=== PATIENT | male | born 1935 | race Caucasian/White ===

== ENCOUNTER 2021-01-09 19:11 | Emergency (ER) | payer OTHER, MEDICAID ==
[~2021-01-09] VITALS: Ht 172.7 cm; Wt 95.3 kg
--- NOTE | 2021-01-09 19:11 | NUR ---
19.00 : Stat EKG in triage.
[2021-01-09 19:15] VITALS: BP_SYST 190
--- NOTE | 2021-01-09 19:24 | NUR ---
Patient to ER bed 5 to gown for evaluation. Side rails up. Report given to WHIT García.
--- NOTE | 2021-01-09 19:30 | NUR ---
DR. LAN AT BEDSIDE FOR EVALUATION.
--- NOTE | 2021-01-09 19:33 | NUR ---
Contacted [facility] ([facility]) ER s/w Cari, Paper Machine Back Tender, who stated to text copy of EKG (unable to receive fax at this time, machine down). Shyanne ill recontact when she receives text and shows EKG to [facility] ER MD. Await call back. Text'd copy of EKG to [phone]
--- NOTE | 2021-01-09 19:35 | NUR ---
ASSUMED CARE OF PATIENT. PATIENT AAOX4 AND AMBULATORY C/O LOSS OF APPETITE X ACOUPLE DAYS AND BURNING SENSATION WHEN SWALLOWING. VSS. CURRENLY STATING 8/10 ON THE PAIN SCALE. CAP REFILL <3. SKIN WNL.
--- NOTE | 2021-01-09 19:41 | NUR ---
Received call back from Cari from [facility] who then requested that Alex Beasley be placed on phone for MD to consult. MD's patched together.
[2021-01-09] MEDS ORDERED: ASPIRIN 325 MG TABLET (ECOTRIN) PO ONE (19:45)
--- NOTE | 2021-01-09 19:49 | NUR ---
contacted [facility] ambulance for ALS transportation but no transfer available.
--- NOTE | 2021-01-09 19:51 | NUR ---
Contacted [facility], was given ETA of 60-75 minutes. Call cancelled will call [phone]
--- NOTE | 2021-01-09 19:53 | NUR ---
Called 911 spoke w/ [facility] [employer]. 911 to be arriving to transfer patient to [facility] accepted by MD Matamoros.
--- NOTE | 2021-01-09 19:54 | NUR ---
GIVEN ASA 325 MG PO. PT TOLERATED WELL.
--- NOTE | 2021-01-09 20:04 | NUR ---
Patient to be transferred to [facility]. Is being transferred due to higher level of care. Receiving facility has accepting physician and available space. ER physician has signed transfer form. Patient or responsible republican has agreed to transfer and signed form. Patient belongings inventoried and will be sent with patient. Copy of nursing notes, lab reports, EKG, Physicians Orders and X-rays to be sent with patient. Report called to WHIT Figueredo at receiving facility. Receiving physician is Dr. Parker. ALS/911 ambulance service has been called for transfer.
--- NOTE | 2021-01-09 20:09 | NUR ---
REPORT GIVEN AND PT TAKEN TO [facility] VIA GURNEY BY 911. FAMILY GIVEN INFORMATION.
[2021-01-09 20:24] LABS: BASOPHILS % (AUTO) 0.3 % (0.0-2.0); EOSINOPHILS # (AUTO) 0.3 K/uL (0.0-0.4); EOSINOPHILS % (AUTO) 3.6 % (0.0-4.0); HEMATOCRIT 27.1 % (36-54); LYMPHOCYTES # (AUTO) 1.5 K/uL (1.0-5.5); LYMPHOCYTES % (AUTO) 16.6 % (20.5-51.5); MEAN CORPUSCULAR HEMOGLOBIN 30 pg (27-31); MEAN CORPUSCULAR HGB CONC 33 % (32-36); MEAN CORPUSCULAR VOLUME 91 fL (79.0-98.0); MONOCYTES # (AUTO) 1.1 K/uL (0.0-1.0); MONOCYTES % (AUTO) 11.4 % (1.7-9.3); NEUTROPHILS # (AUTO) 6.3 K/uL (1.8-7.7); NEUTROPHILS % (AUTO) 68.1 % (40.0-70.0); PLATELET COUNT (AUTO) 181 K/uL (130-430); RED BLOOD CELL COUNT(AUTO) 2.99 MIL/uL (4.2-6.2); RED CELL DISTRIBUTION WIDTH 14.9 % (9.0-15.0); WHITE BLOOD COUNT (AUTO) 9.2 K/uL (4.8-10.8)
[2021-01-09 20:30] LABS: PROTHROMBIN TIME 10.4 SECS (9.5-12.5)
[2021-01-09 20:44] LABS: ANION GAP 7 (5-15); CALCIUM 9.5 mg/dL (8.4-11.0); CHLORIDE 101 mmol/L (98-107); CREATININE 3.34 mg/dL (0.55-1.30); GLUCOSE 180 mg/dL (70-99); POTASSIUM 3.9 mmol/L (3.5-5.1); SODIUM SERUM 139 mmol/L (136-145); UREA NITROGEN, BLOOD 86 mg/dL (8-21)
[2021-01-09 20:50] LABS: ALANINE AMINOTRANSFERASE 12 U/L (12-78); ALBUMIN 2.9 g/dL (3.4-4.8); ASPARTATE AMINOTRANSFERASE 13 U/L (10-37); TOTAL BILIRUBIN 0.6 mg/dL (0.0-1.0)
== END 2021-01-09 20:09 | disposition critical access hospital (66) ==
LOC: SED 19:11
DX: I21.09 ST elevation (STEMI) myocardial infarction involving other coronary artery of anterior wall (principal); I10 Essential (primary) hypertension
CPT/HCPCS: 36415; 71045; 80053; 84484; 85025; 85610-TC; 85730-TC; 93005; 99285